=== PATIENT | female | born 1965 | race African-American/Black ===

== ENCOUNTER 2021-12-23 14:48 | Inpatient (IN) | payer OTHER ==
[2021-12-23] MEDS ORDERED: LOPERAMIDE HCL 2 MG CAPSULE PO PRN (18:02)
[2021-12-23] MEDS ORDERED: MAGNESIUM HYDROX 2400MG/30ML ORAL SUSPENSION 30 ML CUP PO PRN (18:02)
[2021-12-23] MEDS ORDERED: guaiFENesin 200 MG/10 ML 10 ML UNIT-DOSE CUPS PO PRN (18:02)
[2021-12-23] MEDS ORDERED: IBUPROFEN 400 MG TABLET (FP) PO PRN (18:02)
[2021-12-23] MEDS ORDERED: MAGNESIUM CITRATE 300 ML BOTTLE PO PRN (18:02)
[2021-12-23] MEDS ORDERED: MAG HYDROX/AL HYDROX/SIMETH 30 ML UNIT-DOSE CUP PO PRN (18:02)
[2021-12-23] MEDS ORDERED: P-EPHED 60MG/TRIPROLIDI 2.5MG TABLET PO PRN (18:02)
[2021-12-23] MEDS ORDERED: ACETAMINOPHEN 325 MG TABLET (FP) PO PRN (18:02)
[2021-12-23] MEDS ORDERED: ALBUTEROL SO4 HFA INHALER IH PRN (18:04)
[2021-12-23 20:32] VITALS: BMI 25.8
[2021-12-23] MEDS ORDERED: MELATONIN 5 MG TABLETS PO SCH (22:00)
[2021-12-23] MEDS ORDERED: hydrOXYzine PAMOATE 25 MG CAPSULE (FP) PO SCH (22:00)
[2021-12-23] MEDS: CARVEDILOL 6.25 MG TABLET (FP) PO SCH (22:08)
[2021-12-23] MEDS: APIXABAN 5 MG TABLET PO SCH (22:08)
[2021-12-23] MEDS: MELATONIN 5 MG TABLETS PO SCH (22:08)
[2021-12-23] MEDS: THIAMINE HCL 100 MG TABLET (FP) PO SCH (22:08)
[2021-12-23] MEDS: BUDESONIDE/FORMETEROL FUMARATE 80/4.5 mcg INHALER IH SCH (22:18)
[2021-12-23] MEDS ORDERED: TUBERCULIN PPD 5 TU/0.1ML VIAL ID ONE (22:32)
[2021-12-23] MEDS: SACUBITRIL/VALSARTAN 24 MG-26 MG TABLET PO SCH (22:46)
[2021-12-24] MEDS ORDERED: SACUBITRIL/VALSARTAN 24 MG-26 MG TABLET PO SCH (10:00)
[2021-12-24] MEDS: PRENATAL VITAMINS W/ FOLIC ACID TABLET (FP) PO SCH (10:43)
[2021-12-24] MEDS: APIXABAN 5 MG TABLET PO SCH ×2 (10:44→21:16)
[2021-12-24] MEDS: BUDESONIDE/FORMETEROL FUMARATE 80/4.5 mcg INHALER IH SCH ×2 (10:44→21:16)
[2021-12-24] MEDS: BICTEGRAV/EMTRICIT/TENOFOV (BIKTARVY) 50-200-25 MG TABLET PO SCH (10:44)
[2021-12-24] MEDS: NICOTINE 7 MG/24 HOURS TOPICAL PATCH TD SCH (10:44)
[2021-12-24] MEDS: CARVEDILOL 6.25 MG TABLET (FP) PO SCH ×2 (10:45→21:16)
[2021-12-24] MEDS: ASPIRIN COATED 81 MG TABLET.EC PO SCH (10:45)
[2021-12-24] MEDS: MAGNESIUM OXIDE 400 MG TABLET (FP) PO SCH (10:46)
[2021-12-24] MEDS: SACUBITRIL/VALSARTAN 24 MG-26 MG TABLET PO SCH ×2 (10:46→21:16)
[2021-12-24] MEDS: TORSEMIDE 100 MG TABLET PO SCH (10:47)
[2021-12-24 11:36] LABS: HEMATOCRIT 33.5 % (32.4-45.2); HEMOGLOBIN 11.1 GM/dL (10.7-15.3); MCH 30.8 pg (25.7-33.7); MEAN CELL VOLUME 93.2 fl (80-96); MEAN PLT VOLUME 7.9 fl (7.5-11.1); PLATELET COUNT 312 10^3/uL (134-434); RBC 3.59 M/mm3 (3.60-5.2); RDW 27.5 % (11.6-15.6); WHITE BLOOD COUNT 5.6 K/mm3 (4.0-10.0)
[2021-12-24 11:44] LABS: CALCIUM 8.7 mg/dL (8.5-10.1)
[2021-12-24 11:45] LABS: BLOOD UREA NITROGEN 12.7 mg/dL (7-18)
[2021-12-24 11:47] LABS: CREATININE 0.7 mg/dL (0.55-1.3)
[2021-12-24 11:49] LABS: BILIRUBIN,TOTAL 0.4 mg/dL (0.2-1); TOT PROT 6.2 g/dl (6.4-8.2)
[2021-12-24 13:03] LABS: SYPHILIS W/ RPR CONF REACTIVE (NONREACTIVE)
[2021-12-24] MEDS: OLANZapine 5 MG TABLET PO SCH (21:16)
[2021-12-24] MEDS: traZODone HCL 50 MG TABLET (FP) PO SCH (21:17)
[2021-12-24] MEDS: MELATONIN 5 MG TABLETS PO SCH (21:17)
[2021-12-24] MEDS: THIAMINE HCL 100 MG TABLET (FP) PO SCH (21:17)
[2021-12-25] MEDS: TORSEMIDE 100 MG TABLET PO SCH (06:34)
[2021-12-25] MEDS: BICTEGRAV/EMTRICIT/TENOFOV (BIKTARVY) 50-200-25 MG TABLET PO SCH (08:28)
[2021-12-25] MEDS: PRENATAL VITAMINS W/ FOLIC ACID TABLET (FP) PO SCH (10:56)
[2021-12-25] MEDS: CARVEDILOL 6.25 MG TABLET (FP) PO SCH ×2 (10:57→21:10)
[2021-12-25] MEDS: ASPIRIN COATED 81 MG TABLET.EC PO SCH (10:57)
[2021-12-25] MEDS: APIXABAN 5 MG TABLET PO SCH ×2 (10:58→21:11)
[2021-12-25] MEDS: SACUBITRIL/VALSARTAN 24 MG-26 MG TABLET PO SCH ×2 (10:58→21:11)
[2021-12-25] MEDS: NICOTINE 7 MG/24 HOURS TOPICAL PATCH TD SCH (10:59)
[2021-12-25] MEDS: MAGNESIUM OXIDE 400 MG TABLET (FP) PO SCH (10:59)
[2021-12-25] MEDS: BUDESONIDE/FORMETEROL FUMARATE 80/4.5 mcg INHALER IH SCH ×2 (10:59→21:10)
[2021-12-25] MEDS: OLANZapine 5 MG TABLET PO SCH (21:10)
[2021-12-25] MEDS: traZODone HCL 50 MG TABLET (FP) PO SCH (21:11)
[2021-12-25] MEDS: MELATONIN 5 MG TABLETS PO SCH (21:11)
[2021-12-25] MEDS: THIAMINE HCL 100 MG TABLET (FP) PO SCH (21:11)
[2021-12-26] MEDS: TORSEMIDE 100 MG TABLET PO SCH (06:19)
[2021-12-26] MEDS: BICTEGRAV/EMTRICIT/TENOFOV (BIKTARVY) 50-200-25 MG TABLET PO SCH (07:08)
[2021-12-26] MEDS: NICOTINE 7 MG/24 HOURS TOPICAL PATCH TD SCH (10:34)
[2021-12-26] MEDS: PRENATAL VITAMINS W/ FOLIC ACID TABLET (FP) PO SCH (10:34)
[2021-12-26] MEDS: ASPIRIN COATED 81 MG TABLET.EC PO SCH (10:35)
[2021-12-26] MEDS: CARVEDILOL 6.25 MG TABLET (FP) PO SCH ×2 (10:35→22:30)
[2021-12-26] MEDS: APIXABAN 5 MG TABLET PO SCH ×2 (10:35→21:15)
[2021-12-26] MEDS: MAGNESIUM OXIDE 400 MG TABLET (FP) PO SCH (10:36)
[2021-12-26] MEDS: BUDESONIDE/FORMETEROL FUMARATE 80/4.5 mcg INHALER IH SCH ×2 (10:37→21:14)
[2021-12-26] MEDS: SACUBITRIL/VALSARTAN 24 MG-26 MG TABLET PO SCH ×2 (10:37→22:30)
[2021-12-26 12:27] LABS: PH,URINE 5.5 (5.0-8.0); URINE APPEARANCE CLEAR; URINE BILIRUBIN NEGATIVE (NEGATIVE); URINE COLOR YELLOW; URINE GLUCOSE (UA) NEGATIVE (NEGATIVE); URINE KETONE NEGATIVE (NEGATIVE); URINE LEUK ESTERASE NEGATIVE (NEGATIVE); URINE NITRITE NEGATIVE (NEGATIVE); URINE PROTEIN NEGATIVE (NEGATIVE); URINE UROBILINOGEN 0.2 mg/dL (0.2-1.0)
[2021-12-26] MEDS: MELATONIN 5 MG TABLETS PO SCH (21:15)
[2021-12-26] MEDS: THIAMINE HCL 100 MG TABLET (FP) PO SCH (21:15)
[2021-12-26] MEDS: traZODone HCL 50 MG TABLET (FP) PO SCH (21:15)
[2021-12-26] MEDS: OLANZapine 5 MG TABLET PO SCH (21:15)
[2021-12-27] MEDS: TORSEMIDE 100 MG TABLET PO SCH (06:40)
[2021-12-27] MEDS: BICTEGRAV/EMTRICIT/TENOFOV (BIKTARVY) 50-200-25 MG TABLET PO SCH (07:14)
[2021-12-27] MEDS: PRENATAL VITAMINS W/ FOLIC ACID TABLET (FP) PO SCH (10:54)
[2021-12-27] MEDS: SACUBITRIL/VALSARTAN 24 MG-26 MG TABLET PO SCH ×2 (10:55→21:11)
[2021-12-27] MEDS: BUDESONIDE/FORMETEROL FUMARATE 80/4.5 mcg INHALER IH SCH ×2 (10:55→21:11)
[2021-12-27] MEDS: ASPIRIN COATED 81 MG TABLET.EC PO SCH (10:55)
[2021-12-27] MEDS: APIXABAN 5 MG TABLET PO SCH ×2 (10:56→21:42)
[2021-12-27] MEDS: MAGNESIUM OXIDE 400 MG TABLET (FP) PO SCH (10:56)
[2021-12-27] MEDS: CARVEDILOL 6.25 MG TABLET (FP) PO SCH ×2 (10:57→21:12)
[2021-12-27] MEDS: NICOTINE 7 MG/24 HOURS TOPICAL PATCH TD SCH (10:57)
[2021-12-27] MEDS: NICOTINE 10 MG CARTRIDGE (INHALER) IH PRN (10:58)
[2021-12-27] MEDS: THIAMINE HCL 100 MG TABLET (FP) PO SCH (21:12)
[2021-12-27] MEDS: OLANZapine 5 MG TABLET PO SCH (21:12)
[2021-12-27] MEDS: MELATONIN 5 MG TABLETS PO SCH (21:12)
[2021-12-27] MEDS: traZODone HCL 50 MG TABLET (FP) PO SCH (21:13)
[2021-12-28] MEDS: TORSEMIDE 100 MG TABLET PO SCH (06:16)
[2021-12-28] MEDS: BUDESONIDE/FORMETEROL FUMARATE 80/4.5 mcg INHALER IH SCH ×2 (10:18→21:23)
[2021-12-28] MEDS: MAGNESIUM OXIDE 400 MG TABLET (FP) PO SCH (10:19)
[2021-12-28] MEDS: SACUBITRIL/VALSARTAN 24 MG-26 MG TABLET PO SCH ×2 (10:19→21:26)
[2021-12-28] MEDS: ASPIRIN COATED 81 MG TABLET.EC PO SCH (10:19)
[2021-12-28] MEDS: BICTEGRAV/EMTRICIT/TENOFOV (BIKTARVY) 50-200-25 MG TABLET PO SCH (10:19)
[2021-12-28] MEDS: APIXABAN 5 MG TABLET PO SCH ×2 (10:19→21:22)
[2021-12-28] MEDS: PRENATAL VITAMINS W/ FOLIC ACID TABLET (FP) PO SCH (10:20)
[2021-12-28] MEDS: NICOTINE 7 MG/24 HOURS TOPICAL PATCH TD SCH (10:20)
[2021-12-28] MEDS: CARVEDILOL 6.25 MG TABLET (FP) PO SCH ×2 (10:20→21:23)
[2021-12-28] MEDS: NICOTINE 10 MG CARTRIDGE (INHALER) IH PRN (19:44)
[2021-12-28] MEDS: traZODone HCL 50 MG TABLET (FP) PO SCH (21:22)
[2021-12-28] MEDS: THIAMINE HCL 100 MG TABLET (FP) PO SCH (21:22)
[2021-12-28] MEDS: MELATONIN 5 MG TABLETS PO SCH (21:23)
[2021-12-28] MEDS: OLANZapine 5 MG TABLET PO SCH (21:23)
[2021-12-29] MEDS: TORSEMIDE 100 MG TABLET PO SCH (06:47)
[2021-12-29] MEDS: BICTEGRAV/EMTRICIT/TENOFOV (BIKTARVY) 50-200-25 MG TABLET PO SCH (07:25)
[2021-12-29] MEDS: BUDESONIDE/FORMETEROL FUMARATE 80/4.5 mcg INHALER IH SCH ×2 (10:21→21:15)
[2021-12-29] MEDS: PRENATAL VITAMINS W/ FOLIC ACID TABLET (FP) PO SCH (10:21)
[2021-12-29] MEDS: MAGNESIUM OXIDE 400 MG TABLET (FP) PO SCH (10:22)
[2021-12-29] MEDS: CARVEDILOL 6.25 MG TABLET (FP) PO SCH ×2 (10:23→21:16)
[2021-12-29] MEDS: SACUBITRIL/VALSARTAN 24 MG-26 MG TABLET PO SCH ×2 (10:23→21:16)
[2021-12-29] MEDS: APIXABAN 5 MG TABLET PO SCH ×2 (10:23→21:16)
[2021-12-29] MEDS: ASPIRIN COATED 81 MG TABLET.EC PO SCH (10:24)
[2021-12-29] MEDS: NICOTINE 7 MG/24 HOURS TOPICAL PATCH TD SCH (10:24)
[2021-12-29] MEDS: NICOTINE 10 MG CARTRIDGE (INHALER) IH PRN (16:21)
[2021-12-29] MEDS: MELATONIN 5 MG TABLETS PO SCH (21:16)
[2021-12-29] MEDS: THIAMINE HCL 100 MG TABLET (FP) PO SCH (21:16)
[2021-12-29] MEDS: OLANZapine 5 MG TABLET PO SCH (21:16)
[2021-12-29] MEDS: traZODone HCL 50 MG TABLET (FP) PO SCH (21:18)
[2021-12-30] MEDS: TORSEMIDE 100 MG TABLET PO SCH (06:38)
[2021-12-30] MEDS: BICTEGRAV/EMTRICIT/TENOFOV (BIKTARVY) 50-200-25 MG TABLET PO SCH (08:20)
[2021-12-30] MEDS: BUDESONIDE/FORMETEROL FUMARATE 80/4.5 mcg INHALER IH SCH ×2 (10:19→21:28)
[2021-12-30] MEDS: MAGNESIUM OXIDE 400 MG TABLET (FP) PO SCH (10:19)
[2021-12-30] MEDS: PRENATAL VITAMINS W/ FOLIC ACID TABLET (FP) PO SCH (10:19)
[2021-12-30] MEDS: CARVEDILOL 6.25 MG TABLET (FP) PO SCH ×2 (10:20→21:29)
[2021-12-30] MEDS: ASPIRIN COATED 81 MG TABLET.EC PO SCH (10:20)
[2021-12-30] MEDS: SACUBITRIL/VALSARTAN 24 MG-26 MG TABLET PO SCH ×2 (10:21→21:30)
[2021-12-30] MEDS: APIXABAN 5 MG TABLET PO SCH ×2 (10:21→21:29)
[2021-12-30] MEDS: NICOTINE 7 MG/24 HOURS TOPICAL PATCH TD SCH (10:22)
[2021-12-30] MEDS: traZODone HCL 50 MG TABLET (FP) PO SCH (21:29)
[2021-12-30] MEDS: OLANZapine 5 MG TABLET PO SCH (21:29)
[2021-12-30] MEDS: THIAMINE HCL 100 MG TABLET (FP) PO SCH (21:29)
[2021-12-30] MEDS: MELATONIN 5 MG TABLETS PO SCH (21:36)
[2021-12-31] MEDS: TORSEMIDE 40 MG, TORSEMIDE 10 MG PO SCH (06:14)
[2021-12-31] MEDS: BICTEGRAV/EMTRICIT/TENOFOV (BIKTARVY) 50-200-25 MG TABLET PO SCH (08:04)
[2021-12-31] MEDS: CARVEDILOL 6.25 MG TABLET (FP) PO SCH ×2 (10:04→21:24)
[2021-12-31] MEDS: ASPIRIN COATED 81 MG TABLET.EC PO SCH (10:04)
[2021-12-31] MEDS: PRENATAL VITAMINS W/ FOLIC ACID TABLET (FP) PO SCH (10:04)
[2021-12-31] MEDS: MAGNESIUM OXIDE 400 MG TABLET (FP) PO SCH (10:05)
[2021-12-31] MEDS: NICOTINE 7 MG/24 HOURS TOPICAL PATCH TD SCH (10:05)
[2021-12-31] MEDS: SACUBITRIL/VALSARTAN 24 MG-26 MG TABLET PO SCH ×2 (10:05→20:59)
[2021-12-31] MEDS: APIXABAN 5 MG TABLET PO SCH ×2 (10:05→21:00)
[2021-12-31] MEDS: BUDESONIDE/FORMETEROL FUMARATE 80/4.5 mcg INHALER IH SCH ×2 (10:06→20:59)
[2021-12-31] MEDS: NICOTINE 10 MG CARTRIDGE (INHALER) IH PRN (20:59)
[2021-12-31] MEDS: OLANZapine 5 MG TABLET PO SCH (21:00)
[2021-12-31] MEDS: THIAMINE HCL 100 MG TABLET (FP) PO SCH (21:00)
[2021-12-31] MEDS: traZODone HCL 50 MG TABLET (FP) PO SCH (21:00)
[2021-12-31] MEDS: MELATONIN 5 MG TABLETS PO SCH (21:01)
[2022-01-01] MEDS: TORSEMIDE 40 MG, TORSEMIDE 10 MG PO SCH (06:27)
[2022-01-01] MEDS: BICTEGRAV/EMTRICIT/TENOFOV (BIKTARVY) 50-200-25 MG TABLET PO SCH (08:30)
[2022-01-01] MEDS: PRENATAL VITAMINS W/ FOLIC ACID TABLET (FP) PO SCH (10:30)
[2022-01-01] MEDS: ASPIRIN COATED 81 MG TABLET.EC PO SCH (10:30)
[2022-01-01] MEDS: SACUBITRIL/VALSARTAN 24 MG-26 MG TABLET PO SCH ×2 (10:31→22:47)
[2022-01-01] MEDS: NICOTINE 7 MG/24 HOURS TOPICAL PATCH TD SCH (10:31)
[2022-01-01] MEDS: CARVEDILOL 6.25 MG TABLET (FP) PO SCH ×2 (10:31→21:34)
[2022-01-01] MEDS: MAGNESIUM OXIDE 400 MG TABLET (FP) PO SCH (10:32)
[2022-01-01] MEDS: BUDESONIDE/FORMETEROL FUMARATE 80/4.5 mcg INHALER IH SCH ×2 (10:33→21:34)
[2022-01-01] MEDS: APIXABAN 5 MG TABLET PO SCH ×2 (15:41→21:34)
[2022-01-01] MEDS: OLANZapine 5 MG TABLET PO SCH (21:34)
[2022-01-01] MEDS: MELATONIN 5 MG TABLETS PO SCH (21:34)
[2022-01-01] MEDS: THIAMINE HCL 100 MG TABLET (FP) PO SCH (21:34)
[2022-01-01] MEDS: traZODone HCL 50 MG TABLET (FP) PO SCH (21:34)
[2022-01-02] MEDS: TORSEMIDE 40 MG, TORSEMIDE 10 MG PO SCH (06:34)
[2022-01-02] MEDS: BICTEGRAV/EMTRICIT/TENOFOV (BIKTARVY) 50-200-25 MG TABLET PO SCH (07:34)
[2022-01-02] MEDS: PRENATAL VITAMINS W/ FOLIC ACID TABLET (FP) PO SCH (10:43)
[2022-01-02] MEDS: ASPIRIN COATED 81 MG TABLET.EC PO SCH (10:43)
[2022-01-02] MEDS: BUDESONIDE/FORMETEROL FUMARATE 80/4.5 mcg INHALER IH SCH ×2 (10:43→21:56)
[2022-01-02] MEDS: APIXABAN 5 MG TABLET PO SCH ×2 (10:44→21:56)
[2022-01-02] MEDS: CARVEDILOL 6.25 MG TABLET (FP) PO SCH ×2 (10:44→21:56)
[2022-01-02] MEDS: MAGNESIUM OXIDE 400 MG TABLET (FP) PO SCH (10:45)
[2022-01-02] MEDS: NICOTINE 7 MG/24 HOURS TOPICAL PATCH TD SCH (10:47)
[2022-01-02] MEDS: SACUBITRIL/VALSARTAN 24 MG-26 MG TABLET PO SCH ×2 (11:12→21:57)
[2022-01-02] MEDS: OLANZapine 5 MG TABLET PO SCH (21:56)
[2022-01-02] MEDS: THIAMINE HCL 100 MG TABLET (FP) PO SCH (21:56)
[2022-01-02] MEDS: MELATONIN 5 MG TABLETS PO SCH (21:57)
[2022-01-02] MEDS: traZODone HCL 50 MG TABLET (FP) PO SCH (21:57)
[2022-01-03] MEDS: TORSEMIDE 40 MG, TORSEMIDE 10 MG PO SCH (06:23)
[2022-01-03] MEDS: BICTEGRAV/EMTRICIT/TENOFOV (BIKTARVY) 50-200-25 MG TABLET PO SCH (07:05)
[2022-01-03] MEDS: APIXABAN 5 MG TABLET PO SCH ×2 (10:17→21:11)
[2022-01-03] MEDS: CARVEDILOL 6.25 MG TABLET (FP) PO SCH ×2 (10:17→21:11)
[2022-01-03] MEDS: ASPIRIN COATED 81 MG TABLET.EC PO SCH (10:17)
[2022-01-03] MEDS: NICOTINE 7 MG/24 HOURS TOPICAL PATCH TD SCH (10:18)
[2022-01-03] MEDS: MAGNESIUM OXIDE 400 MG TABLET (FP) PO SCH (10:18)
[2022-01-03] MEDS: SACUBITRIL/VALSARTAN 24 MG-26 MG TABLET PO SCH ×2 (10:18→21:12)
[2022-01-03] MEDS: BUDESONIDE/FORMETEROL FUMARATE 80/4.5 mcg INHALER IH SCH ×2 (10:19→21:13)
[2022-01-03] MEDS: PRENATAL VITAMINS W/ FOLIC ACID TABLET (FP) PO SCH (10:19)
[2022-01-03] MEDS: traZODone HCL 50 MG TABLET (FP) PO SCH (21:11)
[2022-01-03] MEDS: OLANZapine 5 MG TABLET PO SCH (21:11)
[2022-01-03] MEDS: MELATONIN 5 MG TABLETS PO SCH (21:11)
[2022-01-03] MEDS: THIAMINE HCL 100 MG TABLET (FP) PO SCH (21:11)
[2022-01-04] MEDS: TORSEMIDE 40 MG, TORSEMIDE 10 MG PO SCH (06:49)
[2022-01-04] MEDS: BICTEGRAV/EMTRICIT/TENOFOV (BIKTARVY) 50-200-25 MG TABLET PO SCH (08:03)
[2022-01-04] MEDS: NICOTINE 7 MG/24 HOURS TOPICAL PATCH TD SCH (10:37)
[2022-01-04] MEDS: PRENATAL VITAMINS W/ FOLIC ACID TABLET (FP) PO SCH (10:37)
[2022-01-04] MEDS: BUDESONIDE/FORMETEROL FUMARATE 80/4.5 mcg INHALER IH SCH ×2 (10:38→21:10)
[2022-01-04] MEDS: ASPIRIN COATED 81 MG TABLET.EC PO SCH (10:38)
[2022-01-04] MEDS: APIXABAN 5 MG TABLET PO SCH ×2 (10:38→21:10)
[2022-01-04] MEDS: SACUBITRIL/VALSARTAN 24 MG-26 MG TABLET PO SCH ×2 (10:39→21:11)
[2022-01-04] MEDS: MAGNESIUM OXIDE 400 MG TABLET (FP) PO SCH (10:40)
[2022-01-04] MEDS: CARVEDILOL 6.25 MG TABLET (FP) PO SCH ×2 (10:40→21:10)
[2022-01-04] MEDS: OLANZapine 5 MG TABLET PO SCH (21:10)
[2022-01-04] MEDS: traZODone HCL 50 MG TABLET (FP) PO SCH (21:10)
[2022-01-04] MEDS: MELATONIN 5 MG TABLETS PO SCH (21:10)
[2022-01-04] MEDS: THIAMINE HCL 100 MG TABLET (FP) PO SCH (21:10)
[2022-01-05] MEDS: TORSEMIDE 40 MG, TORSEMIDE 10 MG PO SCH (06:43)
[2022-01-05] MEDS: BICTEGRAV/EMTRICIT/TENOFOV (BIKTARVY) 50-200-25 MG TABLET PO SCH (07:19)
[2022-01-05] MEDS: CARVEDILOL 6.25 MG TABLET (FP) PO SCH ×2 (09:45→21:16)
[2022-01-05] MEDS: PRENATAL VITAMINS W/ FOLIC ACID TABLET (FP) PO SCH (09:45)
[2022-01-05] MEDS: ASPIRIN COATED 81 MG TABLET.EC PO SCH (09:45)
[2022-01-05] MEDS: SACUBITRIL/VALSARTAN 24 MG-26 MG TABLET PO SCH ×2 (09:45→21:17)
[2022-01-05] MEDS: MAGNESIUM OXIDE 400 MG TABLET (FP) PO SCH (09:45)
[2022-01-05] MEDS: APIXABAN 5 MG TABLET PO SCH ×2 (09:45→21:17)
[2022-01-05] MEDS: BUDESONIDE/FORMETEROL FUMARATE 80/4.5 mcg INHALER IH SCH ×2 (09:46→21:18)
[2022-01-05] MEDS: NICOTINE 7 MG/24 HOURS TOPICAL PATCH TD SCH (09:46)
[2022-01-05] MEDS: THIAMINE HCL 100 MG TABLET (FP) PO SCH (21:16)
[2022-01-05] MEDS: traZODone HCL 50 MG TABLET (FP) PO SCH (21:16)
[2022-01-05] MEDS: OLANZapine 5 MG TABLET PO SCH (21:16)
[2022-01-05] MEDS: MELATONIN 5 MG TABLETS PO SCH (21:17)
[2022-01-06] MEDS: TORSEMIDE 40 MG, TORSEMIDE 10 MG PO SCH (06:17)
[2022-01-06 07:39] VITALS: BP 122/71; PULSE 100; RESP 18; TEMP 97.1
[2022-01-06] MEDS: BICTEGRAV/EMTRICIT/TENOFOV (BIKTARVY) 50-200-25 MG TABLET PO SCH (07:50)
[2022-01-06] MEDS: ASPIRIN COATED 81 MG TABLET.EC PO SCH (09:12)
[2022-01-06] MEDS: MAGNESIUM OXIDE 400 MG TABLET (FP) PO SCH (09:12)
[2022-01-06] MEDS: CARVEDILOL 6.25 MG TABLET (FP) PO SCH (09:12)
[2022-01-06] MEDS: APIXABAN 5 MG TABLET PO SCH (09:12)
[2022-01-06] MEDS: NICOTINE 7 MG/24 HOURS TOPICAL PATCH TD SCH (09:12)
[2022-01-06] MEDS: SACUBITRIL/VALSARTAN 24 MG-26 MG TABLET PO SCH (09:12)
[2022-01-06] MEDS: PRENATAL VITAMINS W/ FOLIC ACID TABLET (FP) PO SCH (09:13)
[2022-01-06] MEDS: BUDESONIDE/FORMETEROL FUMARATE 80/4.5 mcg INHALER IH SCH (09:13)
== END 2022-01-06 09:25 | disposition home or self-care (01) | DRG 774 ==
LOC: YASAS 14:48 → Y5N 18:30
PROVIDERS: ADMIT Allergy & Immunology; ATTEND Allergy & Immunology
PROC: HZ2ZZZZ Detoxification Services for Substance Abuse Treatment (ICD-10-PCS; principal; 2021-12-23)
DX: F10.230 Alcohol dependence with withdrawal, uncomplicated (principal); F14.20 Cocaine dependence, uncomplicated; F17.210 Nicotine dependence, cigarettes, uncomplicated; F19.24 Other psychoactive substance dependence with psychoactive substance-induced mood disorder; F19.282 Other psychoactive substance dependence with psychoactive substance-induced sleep disorder; F31.81 Bipolar II disorder; F39 Unspecified mood [affective] disorder; Z21 Asymptomatic human immunodeficiency virus [HIV] infection status; I50.9 Heart failure, unspecified; J45.909 Unspecified asthma, uncomplicated; Z88.0 Allergy status to penicillin; Z88.8 Allergy status to other drugs, medicaments and biological substances; Z85.3 Personal history of malignant neoplasm of breast; Z90.10 Acquired absence of unspecified breast and nipple; Z86.711 Personal history of pulmonary embolism; Z79.01 Long term (current) use of anticoagulants; Z95.0 Presence of cardiac pacemaker; Z92.21 Personal history of antineoplastic chemotherapy; Z56.0 Unemployment, unspecified
CPT/HCPCS: 36415; 80053; 81003; 82962; 85027; 86593; 86780; 86803; 93005; 93010; C9803-CS; U0003; U0005

== ENCOUNTER 2022-03-23 11:09 | Inpatient (IN) | payer OTHER ==
[2022-03-23 13:20] VITALS: BMI 25.8
[2022-03-23] MEDS ORDERED: NICOTINE 10 MG CARTRIDGE (INHALER) IH PRN (13:34)
[2022-03-23] MEDS ORDERED: ONDANSETRON *ODT* 4 MG TABLET SL PRN (13:34)
[2022-03-23] MEDS ORDERED: IBUPROFEN 600 MG TABLET (FP) PO PRN (13:34)
[2022-03-23] MEDS ORDERED: ACETAMINOPHEN 325 MG TABLET (FP) PO PRN ×2 (13:34)
[2022-03-23] MEDS ORDERED: MAG HYDROX/AL HYDROX/SIMETH 30 ML UNIT-DOSE CUP PO PRN (13:34)
[2022-03-23] MEDS ORDERED: DICYCLOMINE HCL 10 MG CAPSULE PO PRN (13:34)
[2022-03-23] MEDS ORDERED: MAGNESIUM HYDROX 2400MG/30ML ORAL SUSPENSION 30 ML CUP PO PRN (13:34)
[2022-03-23] MEDS ORDERED: NALOXONE HCL (KLOXXADO) 8 MG SPRAY NS PRN (13:34)
[2022-03-23] MEDS ORDERED: BISMUTH SUBSALICYLATE 524 MG/30 ML PO PRN (13:34)
[2022-03-23] MEDS ORDERED: LOPERAMIDE HCL 2 MG CAPSULE PO PRN (13:34)
[2022-03-23] MEDS ORDERED: IBUPROFEN 400 MG TABLET (FP) PO PRN (13:34)
[2022-03-23] MEDS ORDERED: POLYETHYLENE GLYCOL (HEALTHYLAX) 3350 17 GM PACKET PO PRN (13:34)
[2022-03-23] MEDS ORDERED: NICOTINE POLACRILEX 2 MG GUM BUC PRN (13:49)
[2022-03-23] MEDS ORDERED: ALBUTEROL SO4 HFA INHALER IH PRN (13:51)
[2022-03-23] MEDS ORDERED: APIXABAN 5 MG TABLET PO SCH (14:00)
[2022-03-23] MEDS ORDERED: SACUBITRIL/VALSARTAN 24 MG-26 MG TABLET PO SCH (14:00)
[2022-03-23] MEDS ORDERED: CARVEDILOL 6.25 MG TABLET (FP) PO SCH (14:00)
[2022-03-23] MEDS ORDERED: BUDESONIDE/FORMETEROL FUMARATE 80/4.5 mcg INHALER IH SCH (14:00)
[2022-03-23] MEDS ORDERED: BICTEGRAV/EMTRICIT/TENOFOV (BIKTARVY) 50-200-25 MG TABLET PO SCH (14:00)
[2022-03-23] MEDS: MAGNESIUM OXIDE 400 MG TABLET (FP) PO SCH (16:12)
[2022-03-23] MEDS: PRENATAL VITAMINS W/ FOLIC ACID TABLET (FP) PO SCH (16:13)
[2022-03-23] MEDS ORDERED: BICTEGRAV/EMTRICIT/TENOFOV (BIKTARVY) 50-200-25 MG TABLET PO ONE (17:00)
[2022-03-23] MEDS: METHOCARBAMOL 500 MG TABLET PO PRN ×2 (17:04→22:30)
[2022-03-23] MEDS: chlordiazePOXIDE HCL 25 MG CAPSULE PO SCH ×2 (17:04→22:30)
[2022-03-23 17:35] LABS: HEMATOCRIT 30.3 % (32.4-45.2); HEMOGLOBIN 9.9 GM/dL (10.7-15.3); MCH 29.2 pg (25.7-33.7); MCHC 32.8 g/dl (32.0-36.0); MEAN CELL VOLUME 89.1 fl (80-96); MEAN PLT VOLUME 7.9 fl (7.5-11.1); PLATELET COUNT 218 10^3/uL (134-434); RDW 17.2 % (11.6-15.6); WHITE BLOOD COUNT 3.4 K/mm3 (4.0-10.0)
[2022-03-23 17:40] LABS: CALCIUM 8.4 mg/dL (8.5-10.1)
[2022-03-23 17:41] LABS: ALBUMIN 2.8 g/dl (3.4-5.0); BLOOD UREA NITROGEN 14.4 mg/dL (7-18)
[2022-03-23 17:44] LABS: CREATININE 0.8 mg/dL (0.55-1.3)
[2022-03-23 17:46] LABS: BILIRUBIN,TOTAL 0.6 mg/dL (0.2-1); TOT PROT 5.9 g/dl (6.4-8.2)
[2022-03-23] MEDS: BENZOCAINE/MENTHOL (CHLORASEPTIC ) LOZENGE MM PRN (20:48)
[2022-03-23] MEDS: MELATONIN 5 MG TABLETS PO SCH (22:30)
[2022-03-23] MEDS: THIAMINE HCL 100 MG TABLET (FP) PO SCH (22:30)
[2022-03-23] MEDS: CARVEDILOL 6.25 MG TABLET (FP) PO SCH (22:30)
[2022-03-23] MEDS: APIXABAN 5 MG TABLET PO SCH (22:31)
[2022-03-23] MEDS: SACUBITRIL/VALSARTAN 24 MG-26 MG TABLET PO SCH (22:31)
[2022-03-23] MEDS: BUDESONIDE/FORMETEROL FUMARATE 80/4.5 mcg INHALER IH SCH (22:32)
[2022-03-24] MEDS: chlordiazePOXIDE HCL 25 MG CAPSULE PO SCH ×4 (05:53→22:27)
[2022-03-24] MEDS: TORSEMIDE 20 MG TABLET (FP) PO SCH (06:09)
[2022-03-24] MEDS: BICTEGRAV/EMTRICIT/TENOFOV (BIKTARVY) 50-200-25 MG TABLET PO SCH (08:22)
[2022-03-24] MEDS: PRENATAL VITAMINS W/ FOLIC ACID TABLET (FP) PO SCH (10:28)
[2022-03-24] MEDS: APIXABAN 5 MG TABLET PO SCH ×2 (10:28→22:26)
[2022-03-24] MEDS: BUDESONIDE/FORMETEROL FUMARATE 80/4.5 mcg INHALER IH SCH ×2 (10:29→22:26)
[2022-03-24] MEDS: MAGNESIUM OXIDE 400 MG TABLET (FP) PO SCH (10:29)
[2022-03-24] MEDS: SACUBITRIL/VALSARTAN 24 MG-26 MG TABLET PO SCH ×2 (10:29→22:29)
[2022-03-24] MEDS: CARVEDILOL 6.25 MG TABLET (FP) PO SCH ×2 (10:35→22:26)
[2022-03-24] MEDS: guaiFENesin 200 MG/10 ML 10 ML UNIT-DOSE CUPS PO PRN (12:03)
[2022-03-24] MEDS: METHOCARBAMOL 500 MG TABLET PO PRN (17:33)
[2022-03-24] MEDS: traZODone HCL 50 MG TABLET (FP) PO SCH (22:25)
[2022-03-24] MEDS: MELATONIN 5 MG TABLETS PO SCH (22:26)
[2022-03-24] MEDS: OLANZapine 5 MG TABLET PO SCH (22:27)
[2022-03-24] MEDS: THIAMINE HCL 100 MG TABLET (FP) PO SCH (22:27)
[2022-03-25] MEDS: TORSEMIDE 20 MG TABLET (FP) PO SCH (06:12)
[2022-03-25] MEDS: chlordiazePOXIDE HCL 25 MG CAPSULE PO SCH ×4 (06:14→22:39)
[2022-03-25] MEDS: BENZOCAINE/MENTHOL (CHLORASEPTIC ) LOZENGE MM PRN (06:21)
[2022-03-25] MEDS: BICTEGRAV/EMTRICIT/TENOFOV (BIKTARVY) 50-200-25 MG TABLET PO SCH (08:08)
[2022-03-25] MEDS: CARVEDILOL 6.25 MG TABLET (FP) PO SCH ×2 (10:48→22:38)
[2022-03-25] MEDS: TORSEMIDE 40 MG, TORSEMIDE 10 MG PO SCH (11:01)
[2022-03-25] MEDS: SACUBITRIL/VALSARTAN 24 MG-26 MG TABLET PO SCH ×2 (11:02→22:38)
[2022-03-25] MEDS: PRENATAL VITAMINS W/ FOLIC ACID TABLET (FP) PO SCH (11:04)
[2022-03-25] MEDS: MAGNESIUM OXIDE 400 MG TABLET (FP) PO SCH (11:04)
[2022-03-25] MEDS: APIXABAN 5 MG TABLET PO SCH ×2 (11:04→22:38)
[2022-03-25] MEDS: BUDESONIDE/FORMETEROL FUMARATE 80/4.5 mcg INHALER IH SCH ×2 (11:05→22:38)
[2022-03-25] MEDS: MELATONIN 5 MG TABLETS PO SCH (22:37)
[2022-03-25] MEDS: OLANZapine 5 MG TABLET PO SCH (22:38)
[2022-03-25] MEDS: traZODone HCL 50 MG TABLET (FP) PO SCH (22:38)
[2022-03-25] MEDS: THIAMINE HCL 100 MG TABLET (FP) PO SCH (22:38)
[2022-03-26] MEDS: BENZOCAINE/MENTHOL (CHLORASEPTIC ) LOZENGE MM PRN (05:17)
[2022-03-26] MEDS: chlordiazePOXIDE HCL 10 MG CAPSULE PO SCH ×4 (06:07→22:04)
[2022-03-26] MEDS: BICTEGRAV/EMTRICIT/TENOFOV (BIKTARVY) 50-200-25 MG TABLET PO SCH (07:05)
[2022-03-26] MEDS: PRENATAL VITAMINS W/ FOLIC ACID TABLET (FP) PO SCH (11:05)
[2022-03-26] MEDS: APIXABAN 5 MG TABLET PO SCH ×2 (11:08→22:03)
[2022-03-26] MEDS: CARVEDILOL 6.25 MG TABLET (FP) PO SCH ×2 (11:08→22:03)
[2022-03-26] MEDS: BUDESONIDE/FORMETEROL FUMARATE 80/4.5 mcg INHALER IH SCH ×2 (11:08→22:04)
[2022-03-26] MEDS: MAGNESIUM OXIDE 400 MG TABLET (FP) PO SCH (11:10)
[2022-03-26] MEDS: TORSEMIDE 40 MG, TORSEMIDE 10 MG PO SCH (12:00)
[2022-03-26] MEDS: SACUBITRIL/VALSARTAN 24 MG-26 MG TABLET PO SCH ×2 (12:01→22:05)
[2022-03-26] MEDS: THIAMINE HCL 100 MG TABLET (FP) PO SCH (22:03)
[2022-03-26] MEDS: traZODone HCL 50 MG TABLET (FP) PO SCH (22:03)
[2022-03-26] MEDS: MELATONIN 5 MG TABLETS PO SCH (22:03)
[2022-03-26] MEDS: OLANZapine 5 MG TABLET PO SCH (22:05)
[2022-03-27] MEDS: chlordiazePOXIDE HCL 10 MG CAPSULE PO SCH ×2 (05:49→17:16)
[2022-03-27] MEDS: BICTEGRAV/EMTRICIT/TENOFOV (BIKTARVY) 50-200-25 MG TABLET PO SCH (07:08)
[2022-03-27] MEDS: APIXABAN 5 MG TABLET PO SCH ×2 (11:24→21:45)
[2022-03-27] MEDS: CARVEDILOL 6.25 MG TABLET (FP) PO SCH ×2 (11:24→21:46)
[2022-03-27] MEDS: PRENATAL VITAMINS W/ FOLIC ACID TABLET (FP) PO SCH (11:25)
[2022-03-27] MEDS: BUDESONIDE/FORMETEROL FUMARATE 80/4.5 mcg INHALER IH SCH ×2 (11:25→21:45)
[2022-03-27] MEDS: MAGNESIUM OXIDE 400 MG TABLET (FP) PO SCH (11:27)
[2022-03-27] MEDS: TORSEMIDE 40 MG, TORSEMIDE 10 MG PO SCH (11:29)
[2022-03-27] MEDS: SACUBITRIL/VALSARTAN 24 MG-26 MG TABLET PO SCH ×2 (11:29→23:03)
[2022-03-27 14:03] VITALS: RESP 17
[2022-03-27] MEDS: traZODone HCL 50 MG TABLET (FP) PO SCH (21:45)
[2022-03-27] MEDS: THIAMINE HCL 100 MG TABLET (FP) PO SCH (21:45)
[2022-03-27] MEDS: MELATONIN 5 MG TABLETS PO SCH (21:45)
[2022-03-27] MEDS: OLANZapine 5 MG TABLET PO SCH (21:45)
[2022-03-27] MEDS: METHOCARBAMOL 500 MG TABLET PO PRN (21:47)
[2022-03-27 23:48] VITALS: BP 105/71; PULSE 94; TEMP 97.4
[2022-03-28] MEDS ORDERED: chlordiazePOXIDE HCL 10 MG CAPSULE PO ONE (05:00)
[2022-03-28] MEDS: BICTEGRAV/EMTRICIT/TENOFOV (BIKTARVY) 50-200-25 MG TABLET PO SCH (07:18)
[2022-03-28] MEDS: MAGNESIUM OXIDE 400 MG TABLET (FP) PO SCH (10:36)
[2022-03-28] MEDS: BUDESONIDE/FORMETEROL FUMARATE 80/4.5 mcg INHALER IH SCH (10:36)
[2022-03-28] MEDS: APIXABAN 5 MG TABLET PO SCH (10:36)
[2022-03-28] MEDS: PRENATAL VITAMINS W/ FOLIC ACID TABLET (FP) PO SCH (10:37)
[2022-03-28] MEDS: guaiFENesin 200 MG/10 ML 10 ML UNIT-DOSE CUPS PO PRN (10:38)
[2022-03-28] MEDS: CARVEDILOL 6.25 MG TABLET (FP) PO SCH (10:39)
[2022-03-28] MEDS: TORSEMIDE 40 MG, TORSEMIDE 10 MG PO SCH (10:39)
[2022-03-28] MEDS: SACUBITRIL/VALSARTAN 24 MG-26 MG TABLET PO SCH (10:39)
[2022-03-28] MEDS: METHOCARBAMOL 500 MG TABLET PO PRN (10:43)
== END 2022-03-28 13:37 | disposition home or self-care (01) | DRG 773 ==
LOC: YASAS 11:09 → Y6N 14:39
PROVIDERS: ADMIT Allergy & Immunology; ATTEND Surgery
PROC: HZ2ZZZZ Detoxification Services for Substance Abuse Treatment (ICD-10-PCS; principal; 2022-03-23)
DX: F11.23 Opioid dependence with withdrawal (principal); F10.230 Alcohol dependence with withdrawal, uncomplicated; F14.20 Cocaine dependence, uncomplicated; F17.210 Nicotine dependence, cigarettes, uncomplicated; F19.282 Other psychoactive substance dependence with psychoactive substance-induced sleep disorder; F19.24 Other psychoactive substance dependence with psychoactive substance-induced mood disorder; F31.81 Bipolar II disorder; F39 Unspecified mood [affective] disorder; Z21 Asymptomatic human immunodeficiency virus [HIV] infection status; I50.9 Heart failure, unspecified; J45.909 Unspecified asthma, uncomplicated; Z86.19 Personal history of other infectious and parasitic diseases; Z86.711 Personal history of pulmonary embolism; Z79.01 Long term (current) use of anticoagulants; Z85.3 Personal history of malignant neoplasm of breast; Z90.12 Acquired absence of left breast and nipple; Z95.0 Presence of cardiac pacemaker; Z88.8 Allergy status to other drugs, medicaments and biological substances
CPT/HCPCS: 36415; 80053; 85027; 86593; 86780; 87811; C9803-CS; U0003; U0005

== ENCOUNTER 2022-08-16 11:22 | Inpatient (IN) | payer OTHER ==
[2022-08-16 11:42] VITALS: BMI 24.2
[2022-08-16] MEDS ORDERED: ONDANSETRON *ODT* 4 MG TABLET SL PRN (12:13)
[2022-08-16] MEDS ORDERED: NICOTINE 10 MG CARTRIDGE (INHALER) IH PRN (12:13)
[2022-08-16] MEDS ORDERED: IBUPROFEN 600 MG TABLET (FP) PO PRN (12:13)
[2022-08-16] MEDS ORDERED: chlordiazePOXIDE HCL 25 MG CAPSULE PO PRN (12:13)
[2022-08-16] MEDS ORDERED: LOPERAMIDE HCL 2 MG CAPSULE PO PRN (12:13)
[2022-08-16] MEDS ORDERED: NICOTINE 7 MG/24 HOURS TOPICAL PATCH TD PRN (12:13)
[2022-08-16] MEDS ORDERED: DICYCLOMINE HCL 10 MG CAPSULE PO PRN (12:13)
[2022-08-16] MEDS ORDERED: hydrOXYzine PAMOATE 25 MG CAPSULE (FP) PO PRN (12:13)
[2022-08-16] MEDS ORDERED: BENZOCAINE/MENTHOL (CHLORASEPTIC ) LOZENGE MM PRN (12:13)
[2022-08-16] MEDS ORDERED: NICOTINE POLACRILEX 2 MG GUM BUC PRN (12:13)
[2022-08-16] MEDS ORDERED: BISMUTH SUBSALICYLATE 524 MG/30 ML PO PRN (12:13)
[2022-08-16] MEDS ORDERED: POLYETHYLENE GLYCOL (HEALTHYLAX) 3350 17 GM PACKET PO PRN (12:13)
[2022-08-16] MEDS ORDERED: IBUPROFEN 400 MG TABLET (FP) PO PRN (12:13)
[2022-08-16] MEDS ORDERED: MAGNESIUM HYDROX 2400MG/30ML ORAL SUSPENSION 30 ML CUP PO PRN (12:13)
[2022-08-16] MEDS ORDERED: ACETAMINOPHEN 325 MG TABLET (FP) PO PRN (12:13)
[2022-08-16] MEDS ORDERED: MAG HYDROX/AL HYDROX/SIMETH 30 ML UNIT-DOSE CUP PO PRN (12:13)
[2022-08-16] MEDS ORDERED: BENZONATATE 200 MG CAPSULE PO PRN (12:13)
[2022-08-16] MEDS: chlordiazePOXIDE HCL 25 MG CAPSULE PO SCH ×2 (17:31→22:24)
[2022-08-16 17:49] LABS: HEMATOCRIT 29.2 % (32.4-45.2); HEMOGLOBIN 9.6 GM/dL (10.7-15.3); MCH 30.4 pg (25.7-33.7); MCHC 32.9 g/dl (32.0-36.0); MEAN CELL VOLUME 92.3 fl (80-96); MEAN PLT VOLUME 7.9 fl (7.5-11.1); PLATELET COUNT 275 10^3/uL (134-434); RBC 3.16 M/mm3 (3.60-5.2); RDW 18.8 % (11.6-15.6); WHITE BLOOD COUNT 4.4 K/mm3 (4.0-10.0)
[2022-08-16 17:54] LABS: BLOOD UREA NITROGEN 29.2 mg/dL (7-18); CALCIUM 8.7 mg/dL (8.5-10.1)
[2022-08-16 17:55] LABS: ALBUMIN 3.2 g/dl (3.4-5.0)
[2022-08-16 17:58] LABS: BILIRUBIN,TOTAL 0.5 mg/dL (0.2-1); CREATININE 1.2 mg/dL (0.55-1.3); TOT PROT 6.9 g/dl (6.4-8.2)
[2022-08-16] MEDS: APIXABAN 5 MG TABLET PO SCH (22:22)
[2022-08-16] MEDS: THIAMINE HCL 100 MG TABLET (FP) PO SCH (22:22)
[2022-08-16] MEDS: MELATONIN 5 MG TABLETS PO SCH (22:22)
[2022-08-16] MEDS: BUDESONIDE/FORMETEROL FUMARATE 80/4.5 mcg INHALER IH SCH (22:24)
[2022-08-16] MEDS: ALBUTEROL SO4 HFA INHALER IH PRN (22:35)
[2022-08-17] MEDS: chlordiazePOXIDE HCL 25 MG CAPSULE PO SCH ×4 (05:28→22:20)
[2022-08-17] MEDS: EMTRICITAB/RILPIVIRI/TENOF ALA (ODEFSEY) TABLET PO SCH (08:23)
[2022-08-17] MEDS: ALBUTEROL SO4 HFA INHALER IH PRN (08:24)
[2022-08-17] MEDS: APIXABAN 5 MG TABLET PO SCH ×2 (10:18→22:20)
[2022-08-17] MEDS: PRENATAL VITAMINS W/ FOLIC ACID TABLET (FP) PO SCH (10:18)
[2022-08-17] MEDS: BUDESONIDE/FORMETEROL FUMARATE 80/4.5 mcg INHALER IH SCH ×2 (10:18→22:20)
[2022-08-17] MEDS ORDERED: ALBUTEROL SO4 2.5/IPRATROPIUM 0.5 INH SOL 3 ML VIAL.NEB. NEB PRN (16:22)
[2022-08-17] MEDS: guaiFENesin 600 MG TABLET.ER (FP) PO PRN (20:46)
[2022-08-17] MEDS ORDERED: OLANZapine 5 MG TABLET PO SCH (22:00)
[2022-08-17] MEDS: MELATONIN 5 MG TABLETS PO SCH (22:20)
[2022-08-17] MEDS: THIAMINE HCL 100 MG TABLET (FP) PO SCH (22:20)
[2022-08-18] MEDS: chlordiazePOXIDE HCL 25 MG CAPSULE PO SCH ×2 (05:57→10:49)
[2022-08-18] MEDS: guaiFENesin 600 MG TABLET.ER (FP) PO PRN (06:01)
[2022-08-18] MEDS: EMTRICITAB/RILPIVIRI/TENOF ALA (ODEFSEY) TABLET PO SCH (07:05)
[2022-08-18] MEDS: ALBUTEROL SO4 HFA INHALER IH PRN (07:06)
[2022-08-18 10:22] VITALS: BP 104/60; PULSE 86; RESP 16; TEMP 97.3
[2022-08-18] MEDS: APIXABAN 5 MG TABLET PO SCH (10:38)
[2022-08-18] MEDS: BUDESONIDE/FORMETEROL FUMARATE 80/4.5 mcg INHALER IH SCH (10:38)
[2022-08-18] MEDS: PRENATAL VITAMINS W/ FOLIC ACID TABLET (FP) PO SCH (10:38)
[2022-08-19] MEDS ORDERED: chlordiazePOXIDE HCL 10 MG CAPSULE PO PRN
[2022-08-19] MEDS ORDERED: chlordiazePOXIDE HCL 10 MG CAPSULE PO SCH (05:00)
[2022-08-20] MEDS ORDERED: chlordiazePOXIDE HCL 10 MG CAPSULE PO SCH (05:00)
[2022-08-21] MEDS ORDERED: chlordiazePOXIDE HCL 10 MG CAPSULE PO ONE (05:00)
== END 2022-08-18 10:02 | disposition left against medical advice (07) | DRG 770 ==
LOC: YASAS 11:22 → Y3N 13:43
PROVIDERS: ADMIT Allergy & Immunology; ATTEND Surgery
PROC: HZ2ZZZZ Detoxification Services for Substance Abuse Treatment (ICD-10-PCS; principal; 2022-08-16)
DX: F10.230 Alcohol dependence with withdrawal, uncomplicated (principal); F14.20 Cocaine dependence, uncomplicated; F17.210 Nicotine dependence, cigarettes, uncomplicated; F31.9 Bipolar disorder, unspecified; F25.1 Schizoaffective disorder, depressive type; Z21 Asymptomatic human immunodeficiency virus [HIV] infection status; D64.9 Anemia, unspecified; I50.9 Heart failure, unspecified; Z86.711 Personal history of pulmonary embolism; Z95.0 Presence of cardiac pacemaker; Z59.00 Homelessness unspecified; Z56.0 Unemployment, unspecified; Z88.8 Allergy status to other drugs, medicaments and biological substances
CPT/HCPCS: 36415; 80053; 85027; 86593; 86780; C9803-CS; U0003; U0005